=== PATIENT | male | born 1985 | race Caucasian/White ===

== ENCOUNTER 2024-08-16 11:09 | Emergency (ER) | payer OTHER, SELFPAY ==
--- NOTE | ~2024-08-16 | XR_ITS ---
EXAMINATION: XR hand RT min 3V DATE: 08/16/2024 11:37 INDICATION: Pain at the right fourth and fifth metacarpals after punching a metal door TECHNIQUE: Posteroanterior, oblique and lateral views of the right hand were obtained. COMPARISON: None. FINDINGS: There is mild palmar angulation nondisplaced extra articular fracture at the necks of the fourth and fifth metacarpals. No other fractures identified. Joint spaces are normal. IMPRESSION: 1. Mild palmar angulation. Nondisplaced extra articular fractures (boxer's fractures) at the necks of the distal right fourth and fifth metacarpals. Reviewed, dictated and finalized at location A. IMPRESSION: 1. Mild palmar angulation. Nondisplaced extra articular fractures (boxer's frac tures) at the necks of the distal right fourth and fifth metacarpals.
[2024-08-16 11:18] VITALS: BP 141/92; PULSE 63; RESP 20; TEMP 36.6; O2SAT 100
--- NOTE | 2024-08-16 11:36 | ED.UPPEXIN ---
HPI - Extremity Injury (Upper) General Chief Complaint: Extremity Injury, Upper Stated Complaint: Right Hand Injury Time Seen by Provider: 08/16/24 11:36 Source: patient Mode of arrival: ambulatory Limitations: no limitations History of Present Illness HPI narrative: 38-year-old male presents with complaint of pain and swelling to right hand. Two days ago patient became upset and punched a metal door. Reports increased pain and swelling over the last 2 days, pain worse with movement. Denies numbness tingling. All systems reviewed and negative except as noted above. Related Data Home Medications ?Medication ?Instructions ?Recorded ?Confirmed ?Last Taken ?Type Celexa 08/16/24 Unknown History Allergies Allergy/AdvReac Type Severity Reaction Status Date / Time clavulanic acid (From Allergy Unknown Unknown Verified 08/16/24 11:23 Augmentin) amoxicillin Allergy Unknown Verified 01/14/19 09:45 Review of Systems Review of Systems: CONSTITUTIONAL: Denies fever, chills, or sweats. EYES: Denies visual changes, redness, or discharge. ENT: Denies rhinorrhea, congestion, sore throat, or otalgia. CARDIOVASCULAR: Denies chest pain, palpitations, or edema. RESPIRATORY: Denies cough or dyspnea. GASTROINTESTINAL: Denies abdominal pain, nausea, vomiting, or diarrhea. GENITOURINARY: Denies dysuria or hematuria. SKIN: Denies rash or itching. MUSCULOSKELETAL: Denies back pain, joint pain, or myalgia. Reports pain and swelling to right hand NEUROLOGIC: Denies headache, numbness, or weakness. PSYCHIATRIC: Denies anxiety or depression. All other systems reviewed are negative, except as documented in HPI. FOR[facility]LY [facility] Past Medical History Medical History (Updated 08/16/24 @ 11:53 by Chiara Cruz NP) Patulous eustachian tube, right ear Inguinal hernia Comments At time of signature, agree with nursing past medical, surgical, social and family history. There is no relevant family history pertinent to the presenting complaint. Exam Narrative: GENERAL: This is a well-nourished, well-developed patient, in no apparent distress. HEAD: normocephalic, atraumatic. EYES: PERRL. Sclera clear/white. Vision is grossly intact. EARS: External ears normal NOSE: External nose normal NECK: Neck supple, non-tender without lymphadenopathy, masses or thyromegaly. CARDIOVASCULAR: Regular rate and rhythm without murmurs, gallops, or rubs. RESPIRATORY: Clear to auscultation. Breath sounds equal bilaterally. No wheezes, rales, or rhonchi. SKIN: warm, Dry, intact with no suspicious lesions or rash, good texture and turgor. NEURO: awake, alert, and oriented to person, place and time. There were no obvious focal neurologic abnormalities. EXTREMITIES: tenderness to 3rd 4th and 5th distal metacarpal bones on palpation. Bruising and swelling noted to dorsal aspect. Range of motion decreased due to pain. Neurovascularly intact. Course Course Level of Care: Express Care Visit Vital Signs Vital signs: Vital Signs Temperature 36.6 C 08/16/24 11:18 Pulse Rate 63 08/16/24 11:18 Respiratory Rate 20 08/16/24 11:18 Blood Pressure 141/92 H 08/16/24 11:18 Pulse Oximetry 100 08/16/24 11:18 Oxygen Delivery Room Air 08/16/24 11:18 Temperature 36.6 C 08/16/24 11:18 Pulse Rate 63 08/16/24 11:18 Respiratory Rate 20 08/16/24 11:18 Blood Pressure 141/92 H 08/16/24 11:18 Pulse Oximetry 100 08/16/24 11:18 Oxygen Delivery Room Air 08/16/24 11:18 Reviewed MDM - Extremity Injury (Upper) MDM Narrative Medical decision making narrative: pt placed in OCL splint by [facility]. NV intact pre and post procedure. Referred to [facility] for follow up. patien Differential Diagnosis Differential diagnosis: Likely finger sprain, dislocation of finger and fracture of hand Imaging Data My impression: Agree with Radiology Radiologist's impression: EXAMINATION: XR hand RT min 3V DATE: 08/16/2024 11:37 INDICATION: Pain at the right fourth and fifth metacarpals after punching a metal door TECHNIQUE: Posteroanterior, oblique and lateral views of the right hand were obtained. COMPARISON: None. FINDINGS: There is mild palmar angulation nondisplaced extra articular fracture at the necks of the fourth and fifth metacarpals. No other fractures identified. Joint spaces are normal. IMPRESSION: 1. Mild palmar angulation. Nondisplaced extra articular fractures (boxer's fractures) at the necks of the distal right fourth and fifth metacarpals. Discharge Plan Discharge Clinical Impression: Fracture of fourth metacarpal bone of right hand Qualifiers: Encounter type: initial encounter Fracture type: closed Metacarpal location: neck Fracture alignment: nondisplaced Qualified Code(s): S62.364A - Nondisplaced fracture of neck of fourth metacarpal bone, right hand, initial encounter for closed fracture Fracture of fifth metacarpal bone of right hand Qualifiers: Encounter type: initial encounter Fracture type: closed Metacarpal location: neck Fracture alignment: nondisplaced Qualified Code(s): S62.366A - Nondisplaced fracture of neck of fifth metacarpal bone, right hand, initial encounter for closed fracture Patient Disposition: Home Condition: Stable Instructions: Boxer Fracture (ED) Additional Instructions: The x-ray of your right hand shows a fracture to your 4th and 5th metacarpal bones. Take medication as prescribed. This medication may cause drowsiness, do not drive while taking it. Elevate when at rest. Call today and schedule follow-up appointment with hand specialist. Patient Language: Indonesian Prescriptions: New tramadol 50 mg tablet 50 mg PO Q6H PRN (Reason: pain) Qty: 20 0RF No Action Celexa Follow-up/Referrals: Surekha Darby MD [Physician] - ( Call and schedule follow-up appointment for fracture care) Arceo,Caroline Driscoll APN [Primary Care Provider] - Time of Disposition: 11:53
--- OUTSIDE RECORDS SUMMARY | 2024-08-16 12:19 | XMS_ITS | Clinical Summary ---
Author Organization [facility] Address [address] [place] [address] Phone Care Team Providers Care Thoracic Medicine Specialist Name Role Phone Adis, Caroline MAGANA CNP Primary Care Provider [phone] Allergies Active Allergy Reactions Criticality Noted Date Comments Amoxicillin Unknown 03/12/2019 Oxycodone-Acetaminophen Unknown 03/12/2019 Medications Acetaminophen (TYLENOL PO) Take by mouth. Active cetirizine (ZYRTEC) 10 MG TabletIndication s:Cough Take 1 Tab by mouth daily. 90 Tab 3 03/12/2019 Active Active Problems No known active problems Immunizations Immunization Administration Dates Next Due Influenza Vaccine, Quadrivalent, PF 03/12/2019 TDAP Vaccine 03/03/2013 Family History Medical History Relation Name Comments Heart Attack Father Heart Disease Father Hypertension Father Cerebral Anuerysm Mother Hyperthyroidism Sister Relation Name Status Comments Brother Father Alive Maternal Grandfather Maternal Grandmother Mother Alive Paternal Grandfather Paternal Grandmother Sister Alive Social History Tobacco Use Types Packs/Day Years Used Date Smoking Tobacco: Former Cigarettes 0.3 1 0 03/12/2005 - 03/12/2006 Smokeless Tobacco: Never Tobacco Cessation:Counseling Given: No Alcohol Use Standard Drinks/Week Comments Not Currently 0 (1 standard drink = 0.6 oz pur e alcohol) AUDIT-C Answer Date Recorded Frequency of Alcohol Consumption Never 03/12/2019 Average Number of Drinks Not on file 020 Frequency of Binge Drinking Not on file 03/03 PHQ-2 Answer Date Recorded PHQ-2 Score 0 03/12/2019 Sexually Active Control Partners Comments Yes Female Sex and Gender Information Value Date Recorded Sex Assigned at Not on file Legal Sex Male 7:25 PM CDT Gender Identity Not on file Sexual Orientation Not on file Last Filed Vital Signs Vital Sign Reading Time Taken Comments Blood Pressure 112/64 03/12/2019 4:25 PM [employer] Pulse 86 03/12/2019 4:25 PM [employer] Temperature 36.8 C (98.2 F) 03/12/2019 4:25 PM [employer] Respiratory Rate 16 03/12/2019 4:25 PM [employer] Oxygen Saturation 99% 03/12/2019 4:25 PM [employer] Inhaled Oxygen Concentration - - Weight 108.9 kg (240 lb) 03/12/2019 4:25 PM [employer] Height 177.8 cm (5' 10) 03/12/2019 4:25 PM [employer] Body Mass Index 34.44 03/12/2019 4:25 PM [employer] Plan of Treatment Health Maintenance Due Date Last Done Comments Hepatitis C Virus (HCV) Screening 1986 Human Papillomavirus (HPV) Immunization (1 - Male 3-dose series) 2001 Hepatitis B Immunization (1 of 3 - 19+ 3-dose series) 2005 SARS-COV-2 Immunization ( - 2023- season) 2023 Influenza Immunization (Seas on Ended) 2024 03/12/2019 Respiratory Syncytial Virus (RSV) Immunization (Adult) (1 - 1-dose 75+ series) 2061 DTaP/Tdap/Td Immunization Discontinued 2013, 01/19/2013 Meningococcal Immunization (ACWY) Aged Out No longer eligible based on patient's age to complete this topic Pneumococcal Immunization Combined Aged Out No longer eligible based on patient's age to complete this topic Rotavirus Immunization Aged Out No lo nger eligible based on patient's age to complete this topic Insurance MEDICAID [employer] [facility] Care Teams Thoracic Medicine Specialist Relationship Specialty Start Date End Date Arceo, IZZY Velazquez, KELSEY [address] [place] [address] PCP - General Family Medicine 06/04/22
--- OUTSIDE RECORDS SUMMARY | 2024-08-16 12:19 | XMS_ITS | Data Portability ---
Author Organization [facility] Address [address] [place] [address] Care Team Providers Care Residential Treatment Staff Name Role Phone VEGA, CAROLINE Primary Care Provider Unavailabl e Assessment No assessment recorded. Plan of Treatment Reminders Order Date Submit Date Provider Last Modified By Organization Details Last Modified Time Details Appointments None recorded . Lab urinalys is complete , reflex culture 2023 024 [facility], [address] [place] [address] 2, [place], [address], 4 12:12:35 vitamin D, 25-hydro xy, total, serum 2023 024 [facility], [address] [place] [address] 2, [place], [address], 4 12:12:38 CMP, serum or plasma 2023 024 [facility], [address] [place] [address] 2, [place], [address], 4 12:12:31 CBC w/ auto diff 2023 024 [facility], [address] [place] [address] 2, [place], [address], 4 12:12:36 TSH, ultra-se nsitive, serum 2023 024 [facility], [address] [place] [address] 2, [place], [address], 4 12:12:33 lipid panel, serum 2023 024 [facility], [address] [facility], [facility] 2, [place], [address], 4 12:12:30 urinalys is, dipstick , reflex micro 2022 023 [facility], [address] [facility], [facility] 2, [place], [address], 3 16:11:42 TSH, ultra-se nsitive, serum 2022 023 [facility], [address], [address], [place], [address], 3 16:11:43 CMP, serum or plasma 2022 023 [place] [facility], [address], [address], [place], [address], 3 03:08:14 lipid panel, serum 2022 023 [place] [facility], [address], [place], [address], 3 03:08:13 CBC 2022 023 [place] [facility], [address], [place], [address], 3 03:08:14 amylase + lipase, serum 2022 023 [facility], [address] [facility], [facility] 2, [place], [address], 3 16:11:44 celiac disease comprehe nsive panel, serum 2022 023 [facility], [address] [facility], [facility] 2, [place], [address], 3 16:11:41 vitamin D, 25-hydro xy, total, serum 2022 023 [facility], [address] [facility], [place], [address], 3 16:11:45 fecal occult blood, immunoas say, stool 2022 023 [place] [facility], [address] [facility] 2, [place], [address], 3 14:12:29 Referral neurolog ist referral 2023 024 [email or web address] Wallace Boone MD, 4 [facility] , [address], [place], [address], 4 12:16:[address] referral 2022 023 [email or web address] Eliu Lovelace MD, 4 [facility], [address], [place], [address], 4 09:45:20 neurolog ist referral 2022 023 [email or web address] Wallace Boone MD, 4 [facility] , [address], [place], [address], 3 11:17:54 Procedures None recorded . Surgeries None recorded . Imaging None recorded . Medication Orders Bactrim DS 800 mg-160 mg tablet 2024 025 [id number], [address] , [place], [place], [id number], 5 16:52:07 fluticas one propiona te 50 mcg/actu ation nasal spray,connelly spension 2024 025 [facility] #[id number], [address] , [place], [place], [id number], 5 16:52:18 lamotrig ine 25 mg tablet 2023 025 [facility] #[id number], [address], [place], [place], [id number], 5 16:21:13 famotidi ne 20 mg tablet 2020 021 [facility] #[id number], [address], [place], [place], [id number], 3 15:51:16 Patient TargetsNo targets recorded. Patient Instructions Encounter Date Encounter Id Patient Instructions Last Modified By Organization Details Last Modified Time 05/26/2020 [id number] Avoid eating lat e at night and foods that are spicy or acidic. Decrease fatty foods and increase fresh fruits and vegetables and daily intake of fiber. Drink at least 8-10 glasses of water per day. Increase activity level and work up to at least 30 minutes of exercise most days of the week. Not available 05/26/2020 10:48:25 follow up as needed Not available 05/26/2020 10:48:33 05/24/2022 [id number] hemorrhoids: car e instructions Not available 05/24/2022 16:15:06 learning about mood disorders Not available 05/24/2022 16:15:07 A healthy lifestyle: care instructions Not available 05/24/2022 16:15:07 Increase intake of fresh fruits, and vegetables. Avoid packaged foods and fast foods. Follow a low salt diet, drink at least 8-10 8oz glasses of water a day, exercise most days of the week. Take all medications as prescribed. Keep appointments with PCP and all specialists. Not available 05/27/2022 13:23:25 dwp labs needed, plan pending results Not available 05/27/2022 13:23:34 10/09/2022 [id number] A healthy lifestyle: care instructions Not available 10/09/2022 15:25:33 Be safe with medicines. Take your medicines exactly as prescribed. Call your doctor if you think you are having a problem with your medicine. Make a treatment plan with your doctor. Be sure to follow your plan. Try to identify and avoid things that may make you more likely to have a seizure. These may include: Not getting enough sleep. Using drugs or alcohol. Being emotionally stressed. Skipping meals. Keep a record of any seizures you have. Note the date, time of day, and any details about the seizure that you can remember. Your doctor can use this information to plan or adjust your medicine or other treatment. Be sure that any doctor treating you for another condition knows that you have epilepsy. Each doctor should know what medicines you are taking, if any. Wear a medical ID bracelet. You can buy this at most [employer]. If you have a seizure that leaves you unconscious or unable to speak for yourself, this bracelet will let those who are treating you know that you have epilepsy. Talk to your doctor about whether it is safe for you to do certain activities, such as drive or swim. Not available 10/09/2022 15:09:58 follow up in 4 months Not available 10/09/2022 15:28:21 07/29/2023 [id number] A healthy lifestyle: care instructions Not available 07/29/2023 10:01:50 epilepsy: care instructions Not available 07/29/2023 10:01:51 learning about mood disorders Not available 07/29/2023 10:01:50 Cont on current medications. Not available 07/29/2023 10:02:00 dwp labs needed, plan pending results Not available 07/29/2023 10:02:07 04/21/2024 [id number] A healthy lifestyle: care instructions Not available 04/21/2024 16:51:56 cough: care instructions Not available 04/21/2024 16:53:01 learning about mood disorders Not available 04/21/2024 16:29:06 Take all antibiotics prescribed to you. If any fever or increase in pain, call/return to office. Not available 04/27/2024 18:09:10 follow up as needed Not available 04/27/2024 18:09:17 Reason for Referral Neurologist Referral for Sei zure Referring Physician: Caroline Vega [facility], Encounter Date: 10/09/2022 Master Baker Referral for Occult blood detected in feces Referring Physician: Family Aramis Velázquez, Encounter Date: 10/09/2022 Neurologist Referral for Sei zure disorder Referring Physician: Caroline Vega [facility] Aramis, Encounter Date: 07/29/2023 Results Created Date Observation Date Name Description Value Unit Range Abnormal Flag Note LastModifiedBy Organization Detail LastModifiedTime 05/25/19 23 05/24/2022 LIPID PANEL cholesterol, total 116.1 mg/dL 140.0- 200.0 below low normal Not Available [facility] [address] [place] [address], [address], 05/25/2022 03:08:13 05/25/1905/24/2022 LIPID PANEL triglyceride s 139 mg/dL <=150 Not Available [facility] Department [address] [place] [address], [address], 05/25/2022 03:08:13 05/25/19 23 05/24/2022 LIPID PANEL HDL cholesterol 29.3 mg/dL 40.0-1 00.0 below low normal Not Available [facility] [address] [place] [address], [address], 05/25/2022 03:08:13 05/25/1905/24/2022 LIPID PANEL VLDL cholesterol ravi 27.80 mg/dL 5.00-4 0.00 Not Available [facility] [address] [place] [address], [address], 05/25/2022 03:08:13 05/25/1905/24/2022 LIPID PANEL LDL chol calc ([facility]) 62.2 Not Available [facility] Department [address] [place] [address], [address], 05/25/2022 03:08:13 05/25/19 23 05/24/2022 COMP. METAB OLIC PANEL (14) glucose 80 mg/dL 65-99 ANION GP 19.0 mmol/ L N OSMOL 281.0 mOsM/ L N REFER ENCE RANGE : 275.0 -301. 0 Not Available [facility] [address] [place] [address], [address], 05/25/2022 03:08:14 05/25/19 23 05/24/2022 COMP. METAB OLIC PANEL (14) BUN 10 mg/dL 8-26 Not Available [facility] [address] [place] [address], [address], 05/25/2022 03:08:14 05/25/19 23 05/24/2022 COMP. METAB OLIC PANEL (14) creatinine 1.00 mg/dL 0.50-1 .40 Not Available [facility] [address] [place] [address], [address], 05/25/2022 03:08:14 05/25/19 23 05/24/2022 COMP. METAB OLIC PANEL (14) eGFR 101 mL/mi n/1.7 3 >=60 Not Available [facility] [address] [place] [address], [address], 05/25/2022 03:08:14 05/25/19 23 05/24/2022 COMP. METAB OLIC PANEL (14) BUN/creatini ne ratio 9.7 Not Available [facility] Department [address] [place] [address], [address], 05/25/2022 03:08:14 05/25/1905/24/2022 COMP. METAB OLIC PANEL (14) sodium 142.0 mmol/ L 136.0- 144.0 Not Available [facility] [address] [place] [address], [address], 05/25/2022 03:08:14 05/25/19 23 05/24/2022 COMP. METAB OLIC PANEL (14) potassium 4.1 mmol/ L 3.5-5. 3 Not Available [facility] [address] [place] [address], [address], 05/25/2022 03:08:14 05/25/19 23 05/24/2022 COMP. METAB OLIC PANEL (14) chloride 104 mmol/ l 101-11 1 Not Available [facility] [address] [place], [address], 05/25/2022 03:08:14 05/25/19 23 05/24/2022 COMP. METAB OLIC PANEL (14) carbon dioxide, total 23.7 mmol/ L 21.0-3 2.0 Not Available [facility] [address] [place], [address], 05/25/2022 03:08:14 05/25/19 23 05/24/2022 COMP. METAB OLIC PANEL (14) calcium 9.6 mg/dL 8.2-10 .0 Not Available [facility] [address] [place], [address], 05/25/2022 03:08:14 05/25/19 23 05/24/2022 COMP. METAB OLIC PANEL (14) protein, total 7.2 g/dL 6.7-8. 2 Not Available [facility] [address] [place], [address], 05/25/2022 03:08:14 05/25/19 23 05/24/2022 COMP. METAB OLIC PANEL (14) albumin 4.4 g/dL 3.5-5. 5 Not Available [facility] [address] [place], [address], 05/25/2022 03:08:14 05/25/19 23 05/24/2022 COMP. METAB OLIC PANEL (14) globulin, total 2.8 g/dL 1.5-4. 5 Not Available [facility] [address] [place], [address], 05/25/2022 03:08:14 05/25/19 23 05/24/2022 COMP. METAB OLIC PANEL (14) A/G ratio 1.5 Not Available [facility] Department [address] [place], [address], 05/25/2022 03:08:14 05/25/19 23 05/24/2022 COMP. METAB OLIC PANEL (14) bilirubin, total 0.2 mg/dL 0.0-1. 2 Not Available [facility] [address] [place] [address], [address], 05/25/2022 03:08:14 05/25/19 23 05/24/2022 COMP. METAB OLIC PANEL (14) alkaline phosphatase 75.4 IU/L 42.0-1 21.0 Not Available [facility] [address] [place], [address], 05/25/2022 03:08:14 05/25/19 23 05/24/2022 COMP. METAB OLIC PANEL (14) AST (SGOT) 22.4 U/L 10.0-4 2.0 Not Available [facility] [address] [place] [address], [address], 05/25/2022 03:08:14 05/25/19 23 05/24/2022 COMP. METAB OLIC PANEL (14) ALT (SGPT) 31.9 U/L 10.0-6 0.0 Not Available [facility] [address] [place] [address], [address], 05/25/2022 03:08:14 05/25/19 23 05/24/2022 CBC, NO DIFFE RENTI AL/PL ATELE T WBC 9.4 K/uL 3.4-10 .8 Not Available [facility] [address] [place], [address], 05/25/2022 03:08:14 05/25/19 23 05/24/2022 CBC, NO DIFFE RENTI AL/PL ATELE T RBC 4.7 M/uL 4.5-6. 3 Not Available [facility] [address] [place], [address], 05/25/2022 03:08:14 05/25/1905/24/2022 CBC, NO DIFFE RENTI AL/PL ATELE T hemoglobin 13.6 g/dL 13.5-1 7.5 Not Available [facility] [address] [place], [address], 05/25/2022 03:08:14 05/25/1905/24/2022 CBC, NO DIFFE RENTI AL/PL ATELE T hematocrit 42.0 % 40.0-5 2.0 Not Available [facility] [address] [place], [address], 05/25/2022 03:08:14 05/25/1905/24/2022 CBC, NO DIFFE RENTI AL/PL ATELE T MCV 89 fL 80-95 Not Available [facility] [address] [place], [address], 05/25/2022 03:08:14 05/25/1905/24/2022 CBC, NO DIFFE RENTI AL/PL ATELE T MCH 29 pg 27-32 Not Available [facility] [address] [place], [address], 05/25/2022 03:08:14 05/25/1905/24/2022 CBC, NO DIFFE RENTI AL/PL ATELE T MCHC 32 g/dL 32-36 Not Available [facility] [address] [place], [address], 05/25/2022 03:08:14 05/25/1905/24/2022 CBC, NO DIFFE RENTI AL/PL ATELE T RDW 12.7 % 11.5-1 4.5 Not Available [facility] [address] [place], [address], 05/25/2022 03:08:14 05/25/1905/25/2022 ABRIL C DISEA SE PANEL T-transgluta minase (ttg) IgA <2 U/mL 0-3 Negat amna 0 - 3 Weak Posit amna 4 - 10 Posit amna >10 Tissu e Trans gluta chester e (tTG) has been ident ified as the endom ysial antig en. Studi es have demon str- ated that endom ysial IgA antib odies have over 99% speci ficit y for glute n sensi tive enter opath y. Not Available [facility] ([facility]) [address] [place], [address], 05/27/2022 16:11:41 05/25/1905/25/2022 ABRIL C DISEA SE PANEL immunoglobul in A, qn, serum 339 mg/dL 90-386 Not Available [facility] ([facility]) [address] [place], [address], 05/27/2022 16:11:41 05/25/1905/27/2022 ABRIL C DISEA SE PANEL endomysial antibody IgA Negati ve negati ve Not Available [facility] ([facility]) [address] [place], [address], 05/27/2022 16:11:41 05/25/1905/25/2022 URINA LYSIS , ROUTI NE W/RFX specific gravity 1.014 1.005- 1.030 Not Available [facility] ([facility]) [address] [place], [address], 05/27/2022 16:11:42 05/25/19 23 05/25/2022 URINA LYSIS , ROUTI NE W/RFX pH 6.5 5.0-7. 5 Not Available [facility] ([facility]) [address] [place], [address], 05/27/2022 16:11:42 05/25/19 23 05/25/2022 URINA LYSIS , ROUTI NE W/RFX urine-color Yellow yellow Not Available [facility] ([facility]) [address] [facility], [place], [address], 05/27/2022 16:11:42 05/25/19 23 05/25/2022 URINA LYSIS , ROUTI NE W/RFX appearance Clear clear Not Available [facility] ([facility]) [address] [facility], [place], [address], 05/27/2022 16:11:42 05/25/19 23 05/25/2022 URINA LYSIS , ROUTI NE W/RFX WBC esterase Negati ve negati ve Not Available [facility] ([facility]) [address] [facility], [place], [address], 05/27/2022 16:11:42 05/25/19 23 05/25/2022 URINA LYSIS , ROUTI NE W/RFX protein Negati ve negati ve/tra ce Not Available [facility] ([facility]) [address] [facility], [place], [address], 05/27/2022 16:11:42 05/25/19 23 05/25/2022 URINA LYSIS , ROUTI NE W/RFX glucose Negati ve negati ve Not Available [facility] ([facility]) [address] [facility], [place], [address], 05/27/2022 16:11:42 05/25/19 23 05/25/2022 URINA LYSIS , ROUTI NE W/RFX ketones Negati ve negati ve Not Available [facility] ([facility]) [address] [facility], [place], [address], 05/27/2022 16:11:42 05/25/19 23 05/25/2022 URINA LYSIS , ROUTI NE W/RFX occult blood 3+ negati ve abnormal Not Available [facility] ([facility]) [address] [place], [address], 05/27/2022 16:11:42 05/25/19 23 05/25/2022 URINA LYSIS , ROUTI NE W/RFX bilirubin Negati ve negati ve Not Available [facility] ([facility]) [address] [place], [address], 05/27/2022 16:11:42 05/25/19 23 05/25/2022 URINA LYSIS , ROUTI NE W/RFX urobilinogen ,semi-qn 0.2 mg/dL 0.2-1. 0 Not Available [facility] ([facility]) [address] [place], [address], 05/27/2022 16:11:42 05/25/19 23 05/25/2022 URINA LYSIS , ROUTI NE W/RFX nitrite, urine Negati ve negati ve Not Available [facility] ([facility]) [address] [place], [address], 05/27/2022 16:11:42 05/25/19 23 05/25/2022 URINA LYSIS , ROUTI NE W/RFX microscopic examination See below: Micro scopi c was indic ated and was perfo rmed. Not Available [facility] ([facility]) [address] [place], [address], 05/27/2022 16:11:42 05/25/19 23 05/25/2022 TSH RFX ON ABNOR MAL TO FREE T4 TSH 2.270 uIU/m L 0.450- 4.500 Not Available [facility] ([facility]) [address] [place], [address], 05/27/2022 16:11:43 05/25/19 23 05/25/2022 LAURA+L IPASE amylase 39 U/L 31-110 Not Available [facility] ([facility]) [address] [place], [address], 05/27/2022 16:11:44 05/25/19 23 05/25/2022 LAURA+L IPASE lipase 17 U/L 13-78 Not Available [facility] ([facility]) [address] [facility], [place], [address], 05/27/2022 16:11:44 05/25/19 23 05/25/2022 VITAM IN D, 25-HY DROXY vitamin D, 25-hydroxy 24.9 NG/mL 30.0-1 00.0 below low normal Vitam in D defic iency has been defin ed by the Insti tute of [facility] and an Endoc rine Socie ty pract ice guide line as a level of serum 25-OH vitam in D less than 20 ng/mL (1,2) . The Endoc rine Socie ty went on to furth er defin e vitam in D insuf ficie ncy as a level betwe en 21 and 29 ng/mL (2). 1. IOM (Inst itute of Medic ine). 2010. Dieta ry refer ence intak es for calci um and D. [place] gonzalez [place]: [facility] . 2. Amanda uribe [place], Sanjay corral [place], Arleth off-F demetrius i FAULKNER, et al. Evalu ation , treat ment, and preve ntion of vitam in D defic iency : an Endoc rine Socie ty clini ravi pract ice guide line. JCEM. 2010; 96(7) :1911 -30. Not Available [facility] ([facility]) [address] [facility], [place], [address], 05/27/2022 16:11:45 05/25/19 23 05/25/2022 PROT+ CREAT U (RAND OM) creatinine, urine 94.1 mg/dL notest ab. Not Available [facility] ([facility]) [address] [facility], [place], [address], 05/27/2022 16:11:44 05/25/19 23 05/25/2022 PROT+ CREAT U (RAND OM) protein,tota l,urine 5.2 mg/dL notest ab. Not Available [facility] ([facility]) [address] [facility], [place], [address], 05/27/2022 16:11:44 05/25/19 23 05/25/2022 PROT+ CREAT U (RAND OM) protein/crea t ratio 55 mg/g_ creat 0-200 Not Available [facility] ([facility]) [address] [facility], [place], [address], 05/27/2022 16:11:44 05/25/19 23 05/25/2022 MICRO SCOPI C EXAMI NATIO N WBC None seen /hpf 0-5 Not Available [facility] ([facility]) [address] [facility], [place], [address], 05/27/2022 16:11:42 05/25/19 23 05/25/2022 MICRO SCOPI C EXAMI NATIO N RBC >30 /hpf 0-2 abnormal Not Available [facility] ([facility]) [address] [facility], [place], [address], 05/27/2022 16:11:42 05/25/19 23 05/25/2022 MICRO SCOPI C EXAMI NATIO N epithelial cells (non renal) None seen /hpf 0-10 Not Available [facility] ([facility]) [address] [facility], [place], [address], 05/27/2022 16:11:42 05/25/19 23 05/25/2022 MICRO SCOPI C EXAMI NATIO N casts None seen /lpf nonese en Not Available [facility] ([facility]) [address] [facility], [place], [address], 05/27/2022 16:11:42 05/25/19 23 05/25/2022 MICRO SCOPI C EXAMI NATIO N bacteria None seen nonese en/few Not Available [facility] ([facility]) [address] [facility], [place], [address], 05/27/2022 16:11:42 05/29/19 23 05/29/2022 OCCUL T BLOOD , FECAL , IA occult blood, fecal, ia Positi ve negati ve abnormal Not Available [facility] ([facility]) [address] [facility], [place], [address], 05/29/2022 14:12:29 05/31/19 23 05/31/2022 OCCUL T BLOOD , FECAL , IA occult blood, fecal, ia Positi ve negati ve abnormal Not Available [facility] ([facility]) [address] [facility], [place], [address], 05/31/2022 20:08:49 07/29/19 24 07/30/2023 LIPID PANEL cholesterol, total 149 mg/dL 100-19 9 Not Available [facility] ([facility]) [address] [facility], [place], [address], 07/30/2023 12:12:29 07/29/19 24 07/30/2023 LIPID PANEL triglyceride s 178 mg/dL 0-149 above high normal Not Available [facility] ([facility]) [address] [facility], [place], [address], 07/30/2023 12:12:29 07/29/19 24 07/30/2023 LIPID PANEL HDL cholesterol 31 mg/dL >39 below low normal Not Available [facility] ([facility]) [address] [place], [address], 07/30/2023 12:12:29 07/29/19 24 07/30/2023 LIPID PANEL VLDL cholesterol ravi 31 mg/dL 5-40 Not Available [facility] ([facility]) [address] [place], [address], 07/30/2023 12:12:29 07/29/19 24 07/30/2023 LIPID PANEL LDL chol calc ([facility]) 87 mg/dL 0-99 Not Available [facility] ([facility]) [address] [place], [address], 07/30/2023 12:12:29 07/29/19 24 07/30/2023 COMP. METAB OLIC PANEL (14) glucose 105 mg/dL 70-99 above high normal Not Available [facility] ([facility]) [address] [place], [address], 07/30/2023 12:12:31 07/29/19 24 07/30/2023 COMP. METAB OLIC PANEL (14) BUN 13 mg/dL 6-20 Not Available [facility] ([facility]) [address] [place], [address], 07/30/2023 12:12:31 07/29/19 24 07/30/2023 COMP. METAB OLIC PANEL (14) creatinine 0.98 mg/dL 0.76-1 .27 Not Available [facility] ([facility]) [address] [place], [address], 07/30/2023 12:12:31 07/29/19 24 07/30/2023 COMP. METAB OLIC PANEL (14) eGFR 102 mL/mi n/1.7 3 >59 Not Available [facility] ([facility]) [address] [place], [address], 07/30/2023 12:12:31 07/29/19 24 07/30/2023 COMP. METAB OLIC PANEL (14) BUN/creatini ne ratio 13 9-20 Not Available [facility] ([facility]) [address] [place], [address], 07/30/2023 12:12:31 07/29/19 24 07/30/2023 COMP. METAB OLIC PANEL (14) sodium 138 mmol/ L 134-14 4 Not Available [facility] ([facility]) [address] [place], [address], 07/30/2023 12:12:31 07/29/19 24 07/30/2023 COMP. METAB OLIC PANEL (14) potassium 4.5 mmol/ L 3.5-5. 2 Not Available [facility] ([facility]) [address], [place], [address], 07/30/2023 12:12:31 07/29/19 24 07/30/2023 COMP. METAB OLIC PANEL (14) chloride 104 mmol/ L 96-106 Not Available [facility] ([facility]) [address] [place], [address], 07/30/2023 12:12:31 07/29/19 24 07/30/2023 COMP. METAB OLIC PANEL (14) carbon dioxide, total 21 mmol/ L 20- Not Available [facility] ([facility]) [address] [place], [address], 07/30/2023 12:12:31 07/29/19 24 07/30/2023 COMP. METAB OLIC PANEL (14) calcium 9.2 mg/dL 8.7-10 .2 Not Available [facility] ([facility]) [address] [place], [address], 07/30/2023 12:12:31 07/29/19 24 07/30/2023 COMP. METAB OLIC PANEL (14) protein, total 7.0 g/dL 6.0-8. 5 Not Available [facility] ([facility]) [address] [place], [address], 07/30/2023 12:12:31 07/29/19 24 07/30/2023 COMP. METAB OLIC PANEL (14) albumin 4.2 g/dL 4.1-5. 1 Not Available [facility] ([facility]) [address] [place], [address], 07/30/2023 12:12:31 07/29/19 24 07/30/2023 COMP. METAB OLIC PANEL (14) globulin, total 2.8 g/dL 1.5-4. 5 Not Available [facility] ([facility]) [address] [facility] [place], [address], 07/30/2023 12:12:31 07/29/19 24 07/30/2023 COMP. METAB OLIC PANEL (14) A/G ratio 1.5 1.2-2. 2 Not Available [facility] ([facility]) [address] [facility], [place], [address], 07/30/2023 12:12:31 07/29/19 24 07/30/2023 COMP. METAB OLIC PANEL (14) bilirubin, total 0.3 mg/dL 0.0-1. 2 Not Available [facility] ([facility]) [address] [place], [address], 07/30/2023 12:12:31 07/29/19 24 07/30/2023 COMP. METAB OLIC PANEL (14) alkaline phosphatase 80 IU/L 44-121 Not Available [facility] ([facility]) [address] [place], [address], 07/30/2023 12:12:31 07/29/19 24 07/30/2023 COMP. METAB OLIC PANEL (14) AST (SGOT) 24 IU/L 0-40 Not Available [facility] ([facility]) [address] [place], [address], 07/30/2023 12:12:31 07/29/19 24 07/30/2023 COMP. METAB OLIC PANEL (14) ALT (SGPT) 27 IU/L 0-44 Not Available [facility] ([facility]) [address] [place], [address], 07/30/2023 12:12:31 07/29/19 24 07/30/2023 MICRO SCOPI C EXAMI NATIO N WBC None seen /hpf 0-5 Not Available [facility] ([facility]) [address] [facility], [place], [address], 07/30/2023 12:12:33 07/29/19 24 07/30/2023 MICRO SCOPI C EXAMI NATIO N RBC None seen /hpf 0-2 Not Available [facility] ([facility]) [address] [facility], [place], [address], 07/30/2023 12:12:33 07/29/19 24 07/30/2023 MICRO SCOPI C EXAMI NATIO N epithelial cells (non renal) None seen /hpf 0-10 Not Available [facility] ([facility]) [address] [facility], [place], [address], 07/30/2023 12:12:33 07/29/19 24 07/30/2023 MICRO SCOPI C EXAMI NATIO N casts None seen /lpf nonese en Not Available [facility] ([facility]) [address] [facility], [place], [address], 07/30/2023 12:12:33 07/29/19 24 07/30/2023 MICRO SCOPI C EXAMI NATIO N bacteria None seen nonese en/few Not Available [facility] ([facility]) [address] [facility], [place], [address], 07/30/2023 12:12:33 07/29/19 24 07/30/2023 TSH RFX ON ABNOR MAL TO FREE T4 TSH 2.100 uIU/m L 0.450- 4.500 Not Available [facility] ([facility]) [address] [facility], [place], [address], 07/30/2023 12:12:33 07/29/19 24 07/30/2023 UA/M W/RFL X CULTU RE, ROUTI NE specific gravity 1.014 1.005- 1.030 Not Available [facility] ([facility]) [address] [facility], [place], [address], 07/30/2023 12:12:35 07/29/19 24 07/30/2023 UA/M W/RFL X CULTU RE, ROUTI NE pH 6.0 5.0-7. 5 Not Available [facility] ([facility]) [address] [facility], [place], [address], 07/30/2023 12:12:35 07/29/19 24 07/30/2023 UA/M W/RFL X CULTU RE, ROUTI NE urine-color YELLOW yellow Not Available [facility] ([facility]) [address] [facility], [place], [address], 07/30/2023 12:12:35 07/29/19 24 07/30/2023 UA/M W/RFL X CULTU RE, ROUTI NE appearance CLEAR clear Not Available [facility] ([facility]) [address] [facility], [place], [address], 07/30/2023 12:12:35 07/29/19 24 07/30/2023 UA/M W/RFL X CULTU RE, ROUTI NE WBC esterase NEGATI VE negati ve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 [facility] (Adult Med) [address] [place] [address] 04/21/2024 16:09:11 04/28/2024 11:54:13 Depressive disorder 93844667 F32.A depression screening positive, stressed with work, home, sicknessdw p med options, cannabis userpt [facility] Elevated blood-pressure reading without diagnosis of hypertension 173112950 R03.0 elevated today, no prior hx of htn; Consider low salt diet Acute bila teral otitis media 441861917 H65.03 Mc TM erythema and edema/bulg ingpt allergy to amox, will send bactrim Obesity 993643810 E66.9 advised low fat, low cholestero l diet, regular exercise and weight reduction. Cough 45838699 R05.9 LSCTA, slight rhonchi but cleared with cough Health Concerns Section Related Observation LastModified by Organization Detai ls LastModified Time None Recorded Concern Status LastModified by Organization Details LastModified Time None Recorded Advance Directives Directive N: Payers Insurance Date Sequence Insurance Name Policy Number Policy Hyde Covered Member ID Hyde Member ID Guarantor Name 04/28/2024 2 () Ravinder Saucedo [id number] Ravinder Saucedo 02/11/2023 1 [employer] [facility] [address] ON OR AFTER 02/01/2020 (MEDICAID REPLACEMENT - HMO) Ravinder Saucedo [id number] Ravinder Saucedo 04/28/2024 1 [facility] (MEDICAID HMO) [id number] Ravinder Saucedo [id number] Ravinder Saucedo 05/24/2022 1 [facility] [employer] (MEDICAID HMO) Ravinder Saucedo [id number] Ravinder Saucedo 05/24/2022 1 [facility] (MEDICAID HMO) Ravinder Saucedo [id number] Ravinder Saucedo 10/06/2023 1 [facility] Ravinder Saucedo [id number] Ravinder Saucedo Notes Date Note Type Note Provider Name and Address Organization Details Recorded Time 05/26/2020 text/html pt c/o stomach pain in the last couple of months. Pt had covid 5 wks ago. He stated the stomach pain started getting wost when the covid started. Feels sore was doing ok but now it got a little worse this past week,drinking much less soda and more active, hurting more in the am, normal stool. not really changing his diet much but is trying to not eat past 8 pm,sore by belly button area.no fever, no nausea, vomiting or diarrhea Caroline Vega APN, ALGORITHM DESIGN ENGINEER-C Attn: [address] [facility], [place], [address], [facility] 05/26/2020 10:52:58 05/24/2022 text/html here for annual examc/o stomach and bowel problems, stools are light and thinks he has hemorrhoids. Had stomach bug about a week ago. Pt abdomen has been sore/ left lower side pain. Pt states his urine and stool has been limited but not painful. Some blood in stool- has had some in stools over the last year or so.drinking water and gatorade, feels like he is not peeing it out; last BM was today; depression screening positive, stressed with work, home, sickness Caroline Vega APN, ALGORITHM DESIGN ENGINEER-C Attn: [address] [facility], [place], [address], [facility] 05/27/2022 13:24:15 10/09/2022 text/html Passed out and h as seizure like activity on Friday. States he has not any dizziness since.Wants neuro referral Pt denies urinary issues. ER showed possible bacteria in urine but still has bloody stools a few times a week, no pain Caroline Vega APN, FNP-C Attn: [address] [facility], [place], [address], [facility] 10/09/2022 15:29:29 07/29/2023 text/html needs new referr al for neuro due to insurance change. has not has lamotrigine since losing state insurance Caroline Vega APN, FNP-C Attn: [address] [facility], [place], [address], [facility] 07/29/2023 10:07:43 04/21/2024 text/html Has almost lost all hearing in left ear states his neck and jaw has been sore. was admitted on 04/16 for coughing and dizziness and dx with Flu A but kids recently had it. Still has cough and feeling fatigue. not on any meds. Did not have good experience with [facility] Caroline Vega APN, FNP-C Attn: [address] [facility], [place], [address], [facility] 04/27/2024 18:09:38
--- OUTSIDE RECORDS SUMMARY | 2024-08-16 12:19 | XMS_ITS | Clinical Summary ---
Author Organization [facility] Address [address] [place] [address] Care Team Providers Care Scrap Yard Worker Name Role Phone Arceo, Caroline Ceja KNIFE GLAZER Primary Care Provider Allergies Active Allergy Reactions Criticality Noted Date Comments Amoxicillin Anaphylaxis High Oxycodone-Acetaminophen Unknown 03/12/2019 Pt states he gets weak,feels clammy almost passes out Medications chlorproMAZINE (THORAZINE) 25 mg tablet Take 1 tablet (25 mg total) by mouth every 6 (six) hours as needed (hiccup) 9 tablet 3 Active Additional Information Patient not taking.Reported on 12/31/2022 cyclobenzaprine (FLEXERIL) 10 mg tablet Take 1 tablet (10 mg total) by mouth 2 (two) times a day as needed for muscle spasms 20 tablet 3 Active Additional Information Patient not taking.Reported on 12/31/2022 ketorolac (TORADOL) 10 mg tablet Take 1 tablet (10 mg total) by mouth every 6 (six) hours as needed for pain 20 tablet 3 Active Additional Information Patient not taking.Reported on 12/31/2022 lamoTRIgine (LaMICtal) 25 mg tabletIndicatio ns:New onset seizure (HCC) Take 1 tablet (25 mg total) by mouth 2 (two) times a day for two weeks, then 2 tablets po twice a day 120 tablet 3 3 Active Active Problems Problem Noted Date Diagnosed Date Generalized-onset seizures 01/10/2023 Obstructive sleep apnea 01/10/2023 LLQ pain 01/03/2023 Assessment & Plan (01/03/2023 2:32 PM CDT): Associated with rectal bleeding and constipation CT with kidney stones from 06/2022 otherwise normal with no colitis or diverticulitis, mild leokocytosis, no anemia Will plan for colonoscopy to rule out IBD, if negative then likely related to IBS-C Constipation 01/03/2023 Assessment & Plan (01/03/2023 2:28 PM CDT): Constipated most days with one blow out once a week, associated with LLQ pain, hemorrhoids and rectal bleeding normal CMP, mildly elevately wbc 10.[address] 06/2022 with kidney stones Mom and dad with polyps in their 30s. Plan Schedule colonoscopy Add daily miralax, continue fiber supplement Rectal bleeding 12/31/2022 Assessment & Plan (01/03/2023 2:29 PM CDT): Intermittent blood in stool few times a week with occasional dark blood, ongoing for a year. Associated with LLQ pain, better after bm, but does not feel like he's emptying all the way. Better with hemorrhoid wipes. Started fiber gummies. Constipated most days with one blow out once a week. Has a lot of stress at work and home No NSAID use Family hx of father and mother with polyps in their 30s No smoking, vapes, no ETOH, uses edible marijuana every couple of weeks Labs from 10/2022 with normal CMP, mildly elevately wbc 10.[address] A/P without 06/2022 with kidney stones and mild hydronephrosis Plan Hemorrhoid bleeding from constipation and straining vs colitis vs polyps Schedule colonoscopy Add daily miralax, continue fiber supplement, sitz bath, preparation wipe/cream, avoid straining. Calculus of kidney 06/14/2022 Overview (06/14/2022): Added automatically from request for surgery [id number] Hydronephrosis with urinary obstruction due to ureteral calculus 06/11/2022 Lumbar radiculopathy Immunizations Immunization Administration Dates Next Due Influenza, Quadrivalent, Spl it, Preservative Free, Intramuscular 03/12/2019 Tdap 03/03/2013 Surgical History Surgery Date Site/Laterality Comments CYSTOSCOPY INSERTION / REMOVAL STENT / STONE HERNIA REPAIR WISDOM TOOTH EXTRACTION Medical History Medical History Date Comments PONV (postoperative nausea and vomiting) Kidney stones Depression PTSD (post-traumatic stress disorder) Generalized-onset seizures (HCC) 01/10/2023 Social History Tobacco Use Types Packs/Day Years Used Date Smoking Tobacco: Former Vaping Smokeless Tobacco: Never Tobacco Cessation:Counseling Given: Not Answered Alcohol Use Standard Drinks/Week Comments Yes 0 (1 standard drink = 0.6 oz pur e alcohol) socially AUDIT-C Answer Date Recorded Q1: How often do you have a drink containing alc ohol? Never 12/31/2022 Average Number of Drinks Not on file 023 Frequency of Binge Drinking Not on file 12/03 PHQ-2 Answer Date Recorded PHQ-2 Total Score (If total score is 3 or more points, staff should administer the PHQ-9) 0 06/11/2022 Personal Safety Answer Date Recorded Have you ever been in or are you currently in a harmful physical or emotional relationship or is someone making you feel afraid or unsafe? Denies 04/15/2024 Sex and Gender Information Value Date Recorded Sex Assigned at Not on file Legal Sex Male 3:47 PM SPA THERAPIST Gender Identity Not on file Sexual Orientation Not on file Obstetrics History Last Filed Vital Signs Vital Sign Reading Time Taken Comments Blood Pressure 144/96 04/16/2024 5:40 AM SPA THERAPIST Pulse 79 04/15/2024 8:19 PM SPA THERAPIST Temperature 37.2 C (99 F) 04/15/2024 8:19 PM SPA THERAPIST Respiratory Rate 24 04/15/2024 8:19 PM SPA THERAPIST Oxygen Saturation 98% 04/15/2024 8:19 PM SPA THERAPIST Inhaled Oxygen Concentration - - Weight 106.1 kg (234 lb) 04/15/2024 8:19 PM SPA THERAPIST Height 175.3 cm (5' 9) 04/15/2024 8:19 PM SPA THERAPIST Body Mass Index 34.56 04/15/2024 8:19 PM SPA THERAPIST Plan of Treatment Health Maintenance Due Date Last Done Comments Hepatitis C Screening 1986 Regular Well Visit/Exam 18-64 2004 Varicella Vaccines (1 of 2 - 13+ 2-dose series) 01/11/2010 DTaP/Tdap/Td Vaccine (4 - Td or Tdap) 03/03/2023 03/03/2013, 01/19/2013, 08/04/2006 Depression Screening 06/12/2023 06/11/2022, 09/06/19 Influenza Vaccine (Season Ended) 2024 03/12/2019, 12/14/2009, 01/04/2009, Additional history exists Hepatitis B Screening Completed 06/02/2007 , 01/02/2007, 12/05/2006 HPV Vaccines Aged Out No longer eligi ble based on patient's age to complete this topic Pneumococcal vaccine <65 Aged Out No longer eligible based on patient's age to complete this topic Medical Devices Explanted Type Area Learning Support Resource Room Teacher Device Identifier Shelf Expiration Date Model / Serial / Lot [employer] Munira Contour 6fr 28cm Taper Tip Bladder Drake Low Profile Large Inner Latex Free 180-224 - [id number] Implanted:Qty: 1 on 06/11/2022 by Freddy Yun MD at [facility] Explanted:Qty: 1 on 06/24/2022 at [facility] Left: [employer]re[employer] Munira 05/13/2024 180-224 / / [id number] Insurance [facility] Advance Directives For more information, please contact: [phone] * Full Code (Latest Code Status on File) Date Activated Date Inactivated Comments 09/06/2019 10:20 PM 09/09/2019 10:26 PM Care Teams Scrap Yard Worker Relationship Specialty Start Date End Date Caroline Arceo NP [address] [place] [address] PCP - General Nurse Practitioner 06/10/22
--- OUTSIDE RECORDS SUMMARY | 2024-08-16 12:19 | XMS_ITS | Clinical Summary ---
Author Organization [facility] Address [address] [place] [address] Phone Care Team Providers Care Industrial Insulator Name Role Phone Unavailable Primary Care Provider Unavailabl e Allergies Active Allergy Reactions Criticality Noted Date Comments Amoxicillin Unknown 01/13/2015 Medications naproxen (NAPROSYN) 500 mg tablet Take 1 Tablet (500 mg) by mouth 2 times daily with meals Po pc bid. 20 Tablet None 01/13/2015 Active cyclobenzaprine (FLEXERIL) 10 mg tablet Take 1 Tablet (10 mg) by mouth 3 times daily as needed for Spasm. 30 Tablet None 01/13/2015 Active meloxicam (MOBIC) 15 mg tablet Take 15 mg by mouth daily. Active Social History Tobacco Use Types Packs/Day Years Used Date Smoking Tobacco: Never Alcohol Use Standard Drinks/Week Comments No 0 (1 standard drink = 0.6 oz pur e alcohol) Sex and Gender Information Value Date Recorded Sex Assigned at Not on file Legal Sex Male 8:50 AM SCREEN AND CYCLONE REPAIRER Gender Identity Not on file Sexual Orientation Not on file Last Filed Vital Signs Vital Sign Reading Time Taken Comments Blood Pressure 130/75 01/13/2015 10:30 AM SCREEN AND CYCLONE REPAIRER Pulse 78 01/13/2015 10:30 AM SCREEN AND CYCLONE REPAIRER Temperature - - Respiratory Rate 9 01/13/2015 9:30 AM SCREEN AND CYCLONE REPAIRER Oxygen Saturation 99% 01/13/2015 10:30 AM SCREEN AND CYCLONE REPAIRER Inhaled Oxygen Concentration - - Weight - - Height - - Body Mass Index - - Plan of Treatment Health Maintenance Due Date Last Done Comments DTAP/TDAP/TD VACCINES (1 - Tdap) 2005 HEPATITIS B VACCINES (1 of 3 - 19+ 3-dose series) 2005 INFLUENZA VACCINE (#1) 2023 HPV VACCINES Aged Out No longer eligi ble based on patient's age to complete this topic
--- OUTSIDE RECORDS SUMMARY | 2024-08-16 12:19 | XMS_ITS | Referral Summary ---
Author Organization [facility] Address [address] [place] [address] Care Team Providers Care Chemistry Associate Name Role Phone Arceo, Caroline Ceja DIGITAL PRINT OPERATOR Primary Care Provider Allergies Active Allergy Reactions [...] (06/14/2022): Added automatically from request for surgery [id number] Hydronephrosis with urinary obstruction due to ureteral calculus 06/11/2022 Lumbar radiculopathy Immunizations Immunization Administration Dates Next Due Influenza, Quadrivalent, Spl it, Preservative Free, Intramuscular 03/12/2019 Tdap 03/03/2013 Social History Tobacco Use Types Packs/Day Years [...] on file Legal Sex Male 3:47 PM MANAGER GRANT Gender Identity Not on file Sexual Orientation Not on file Last Filed Vital Signs Vital Sign Reading Time Taken Comments Blood Pressure 144/96 04/16/2024 5:40 AM MANAGER GRANT Pulse 79 04/15/2024 8:19 PM MANAGER GRANT Temperature 37.2 C (99 F) 04/15/2024 8:19 PM MANAGER GRANT Respiratory Rate 24 04/15/2024 8:19 PM MANAGER GRANT Oxygen Saturation 98% 04/15/2024 8:19 PM MANAGER GRANT Inhaled Oxygen Concentration - - Weight 106.1 kg (234 lb) 04/15/2024 8:19 PM MANAGER GRANT Height 175.3 cm (5' 9) 04/15/2024 8:19 PM MANAGER GRANT Body Mass Index 34.56 04/15/2024 8:19 PM MANAGER GRANT Plan of Treatment Not on file Medical Devices Explanted Type Area Core Cutter Device Identifier Shelf Expiration Date Model / Serial / Lot [employer] Munira Contour 6fr 28cm Taper Tip Bladder Drake Low Profile Large Inner Latex Free 180-224 - [id number] Implanted:Qty: 1 on 06/11/2022 by Freddy Yun MD at [facility] Explanted:Qty: 1 on 06/24/2022 at [facility] Left: [facility] [employer] [facility] 05/13/2024 180-224 / / [id number] Insurance [facility] Member Subscriber Plan / Payer (Ef fective 2024-Present) Name:Ravinder Saucedo Relation to Subscriber:Self Name:Ravinder Saucedo Payer ID:[id number] (NAIC) Group ID:Not on file Type:MEDICAID RISK OTHER Address: [address] [facility] Advance Directives For more information, please contact: [phone] * Full Code (Latest Code Status on File) Date Activated Date Inactivated Comments 09/06/2019 10:20 PM 09/09/2019 10:26 PM Care Teams Chemistry Associate Relationship Specialty Start Date End Date Arceo, Caroline Ceja NP [address] [place] [address] PCP - General Nurse Practitioner 06/10/22
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
--- OUTSIDE RECORDS SUMMARY | 2024-08-16 12:32 | XMS_ITS | Continuity of Care Document ---
Author Name [facility] Organization [facility] Care Team Providers Care [employer] Name Role Phone [facility] Unavailable Unavailable Problems Combined list of problems from Department of Defense and Veterans Affairs facilities. It does not include entries that were removed or entered in error. Problem Status Onset Date Problem Type Date of Resolution Comments Source visit for: refer patient without exam or treatment Inactive Condition DoD PERSONALITY DISORDER Active Condition DoD MAJOR DEPRESSION RECURRENT MODERATE Active Condition [facility] visit for: administrative purpose Inactive Condition DoD ESOPHAGEAL REFLUX Active Condition DoD CONSTIPATION Inactive Condition DoD GASTROENTERITIS Active Condition DoD MIGRAINE HEADACHE Active Condition DoD Cast Inactive Condition DoD REACTIVE AIRWAY DISEASE Active Condition DoD REACTIVE AIRWAY DYSFUNCTION Active Condition DoD ASSESSMENT OF PATIENT CONDITION WORK-RELATED Active Condition DoD noncompliance with therapy Active Condition DoD CHEST PAIN Active Condition DoD 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 DoD ADJUSTMENT DISORDER WITH DEPRESSED MOOD Active Condition 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 DoD CORNEAL SCAR Active Condition DoD REFRACTIVE ERROR - MYOPIA Active Condition DoD ASTIGMATISM - REGULAR Active Condition DoD visit for: routine eye exam Active Condition DoD nausea Inactive Condition 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 DoD ATYPICAL CHEST PAIN Inactive Condition [facility] Preventive Medicine New Patient Evaluation Adult 18-39 Active Condition DoD visit for: services physical Active Condition DoD visit for: screening exam Inactive Condition DoD Need For Vaccination Hepatitis A Inactive Condition DoD Vaccines Prophylactic Need Against Bacterial Diseases Inactive Condition DoD Vaccines Prophylactic Need Against Smallpox Inactive Condition DoD Need For Vaccination Typhoid Inactive Condition DoD OTITIS MEDIA Inactive Condition DoD BACKACHE Inactive Condition muscle rub #1 uad prn pain DoD SUPERFICIAL INJURY - BLISTER OF THE FOOT Inactive Condition DoD COMMON COLD Inactive Condition symptoms may be due to underlying allergy symptoms. Discussed with ANETA, agrees, he comes [place] and notes that the seasons are much different DoD visit for: ears / hearing exam Active Condition DoD Patient Education Active Condition DoD visit for: screening exam pulmonary tuberculosis Inactive Condition DoD Tuberculin PPD Induration Positive Interpretation Active Condition [facility] visit for: services physical accession Inactive Condition DoD Diagnosis: ICD-10-CM F33.1 Major depressive disorder, recurrent, moderate Active Diagnosis [facility] Diagnosis: ICD-10-CM Z59.2 Discord with neighbors, lodgers and landlord Active Diagnosis [facility] Diagnosis: ICD-10-CM F43.10 Post-traumatic stress disorder, unspecified Active Diagnosis [facility] Diagnosis: ICD-10-CM R45.851 Suicidal ideations Active Diagnosis [facility] Medications Combined list of outpatient medications from Department of [facility] and Veterans Affairs facilities.Medications provided include 1) outpatient medications from the last 15 months, and 2) patient-reported medications. Medication Details Route Status Patient Instructions Prescription Expires Prescription Number Last Dispense Date Ordering Provider Order Date Order Qty Source CITALOPRAM HYDROBROMID E 20MG TAB TAKE ONE-HALF TABLET BY MOUTH EVERY MORNING FOR 14 DAYS, THEN TAKE ONE TABLET EVERY MORNING FOR DEPRESSI ON ORAL ACTIVE 04/24/2025 [id number] 5 MCKNIGHTMRAI 2024 30 [facility] Allergies, Adverse Reactions, Alerts Combined list of allergies from Department of Defense and Veterans Affairs facilities. It does not include entries that were removed or entered in error. Substance Category Reaction Severity Reaction type Status Date Reported Comments Source AMOXICILLIN Propensity to adverse reactions to drug (finding) Respiratory distress active 5 [facility] AUGMENTIN Drug allergy (disorder) Unknown active 9 [facility] AUGMENTIN Propensity to adverse reactions to drug (finding) Swelling active 5 [facility] Immunizations Combined list of available immunizations from the Department of Defense and [facility] facilities. Immunization Series Date Given Administered By Site Reaction Lot Number CVX Code Drug Waste Salvager Status Comments Source influenza virus vaccine, live, attenuated, for intranasal use 1 2009 [id number] Unknown (UNK) comple t ed influenza virus vaccine, live, attenuate d, for intranasa l use [facility] Novel influenza-H1N 1-09, injectable 1 2009 UNK 127 [employer]. (NOV) complet ed Novel influenza -[id number], injectabl e [facility] influenza virus vaccine, live, attenuated, for intranasal use 1 2008 [id number] 111 [employer]. (MED) complet ed influenza virus vaccine, live, attenuate d, for intranasa l use DoD typhoid Vi capsular polysaccharid e vaccine 1 2008 UNK 101 Unknown (UNK) comple t ed typhoid Vi capsular polysacch aride vaccine DoD anthrax vaccine 5 2007 UNK 24 Miles (MIL) complet ed anthrax vaccine DoD influenza virus vaccine, live, attenuated, for intranasal use 1 2007 [id number] 111 [facility] (SKB) complet ed influenza virus vaccine, live, attenuate d, for intranasa l use DoD hepatitis B vaccine, adult dosage 3 2007 [id number] 43 Unknown (UNK) comple t ed hepatitis B vaccine, adult dosage DoD anthrax vaccine 4 2007 UNK 24 [facility] ([facility]) complet ed anthrax vaccine DoD hepatitis A vaccine, adult dosage 2 2007 UNK 52 Unknown (UNK) comple t ed hepatitis A vaccine, adult dosage DoD hepatitis B vaccine, adult dosage 2 2006 UNK 43 Unknown (UNK) comple t ed hepatitis B vaccine, adult dosage DoD anthrax vaccine 3 2006 UNK 24 Unknown (UNK) comple t ed anthrax vaccine DoD anthrax vaccine 2 2006 UNK 24 Unknown (UNK) comple t ed anthrax vaccine DoD hepatitis B vaccine, adult dosage 1 2006 UNK 43 Unknown (UNK) comple t ed hepatitis B vaccine, adult dosage DoD influenza virus vaccine, live, attenuated, for intranasal use 1 2006 UNK 111 Unknown (UNK) comple t ed influenza virus vaccine, live, attenuate d, for intranasa l use DoD anthrax vaccine 1 2006 GITA TIERNEY [id number] [facility] ([facility]) complet ed anthrax vaccine DoD hepatitis A vaccine, adult dosage 1 2006 GITA TIERNEY [id number] [facility] (SKB) complet ed hepatitis A vaccine, adult dosage DoD vaccinia (smallpox) vaccine 1 2006 GITA TIERNEY [id number] [facility] complet ed vaccinia (smallpox ) vaccine DoD typhoid Vi capsular polysaccharid e vaccine 1 2006 GITA TIERNEY [id number] Sanofi Pasteur (PMC) complet ed typhoid Vi capsular polysacch aride vaccine DoD measles, mumps and rubella virus vaccine 1 2006 UNK 03 Unknown (UNK) comple t ed measles, mumps and rubella virus vaccine DoD poliovirus vaccine, inactivated 1 2006 [id number] Sanofi Pasteur (PMC) complet ed polioviru s vaccine, inactivat ed DoD meningococcal polysaccharid e (groups A, C, Y and W-135) diphtheria toxoid conjugate vaccine (MCV4P) 1 2006 [id number] 114 Sanofi Pasteur (PMC) complet ed meningoco ccal polysacch aride (groups A, C, Y and W-135) diphtheri a toxoid conjugate vaccine (MCV4P) DoD tetanus toxoid, reduced diphtheria toxoid, and acellular pertu is vaccine, adsorbed 1 2006 [id number] 115 Sanofi Pasteur (PMC) complet ed tetanus toxoid, reduced diphtheri a toxoid, and acellular pertussis vaccine, adsorbed DoD Encounters Combined list of: 1) Encounters from Department of Veterans Affairs facilities going backup to the last 18 months, not all VA inpatient encounters are included; 2) Encounters from the Department of Defense facilities going backup to 280 months. Location Location Details Encounter Type Encounter Number Reason For Visit Attending Provider ADM Date DC Date Status Disposition Source [place] [facility] [place] OUTPATIENT [id number] CARISSA MRAIN 08/05 Released w/o Limitations [place] [id number] POS PPD CARLITA CHEN 08/06 Released with Work/Duty Limitations [place] [id number] hearing test NORMA LINDSEY 08/06 Released w/o Limitations [place] [place] [id number] TB [facility] ABDOUL ORTA 08/07 Released [place] Lim[place] OUTPATIENT [id number] CHARLEE MONTAGUE 08/23 Released w/o Limitations [place]) OUTPATIENT [id number] cold. RAPHAEL GARCIA V 09/16 Released w/o Limitations [place]) [place]) OUTPATIENT [id number] heel pain. ANATOLY KEON E. 10/01 Released with Work/Duty Limitations [place]) [place]) OUTPATIENT [id number] back pain. BRII DE LA ROSA 10/23 Released w/o Limitations [place]) [place]) OUTPATIENT [id number] ear pain. YANNICK ACOSTA 11/07 Released w/o Limitations [place] [place] OUTPATIENT [id number] PREDEPL OYMENT [employer]ER 'S READINE SS CHECK MARJAN ROSARIO 11/07 Released w/o Limitations [place]Read [place]ess Process [place]) [place]) OUTPATIENT [id number] A POR DAYNA ALCANTAR 11/10 Released w/o Limitations [place]) [facility](Hear ing Conservat ion [facility]) OUTPATIENT [id number] in-proc essing/ pcs NORMA AHUJA 01/04 Released w/o Limitations [facility](He aring Conserv ation [facility]) [facility]) OUTPATIENT [id number] MARTI Valadez 01/12 Released w/o Limitations [facility] [place]([facility]) [facility] [place]) OUTPATIENT [id number] f/u dehydra deliciaon NITISH JOHNS 07/08 Released w/o Limitations [facility] [place]([facility]) [facility] [place](Card iology) OUTPATIENT [id number] Walk-in Stress Test NORA PATTON Maren 07/20 Released w/o Limitations [facility] [place](Ca rdiolog y) [facility] [place]([facility]) OUTPATIENT [id number] episodi c chest pain IMELDAGORDON KRISTIN JUAN DANIEL 09/09 Released w/o Limitations [facility] [place]([facility]) [facility] [place](Opto metry [facility]) OUTPATIENT [id number] red right eye pt wears cl ANDREW CAMACHO N 09/19 Released w/o Limitations [facility] [place](Op tometry CT) [facility] [place](Opto metry [facility]) OUTPATIENT [id number] se1 od ANDREW CAMACHO N 09/21 Released w/o Limitations [facility] [place](Op tometry CT) [facility] [place](Opto metry [facility]) OUTPATIENT [id number] annual exam RONY THOMSON 12/29 Released w/o Limitations [facility] [place](Op tometry CT) [facility] [place](Carisa gency Room) OUTPATIENT [id number] ZURDO NIEVES 01/05 Released w/o Limitations [facility] [place](Em ergency Room) [facility] [place] ER, [facility] TO [facility] [id number] TING CASTANON 02/13 RETURNED TO DUTY [facility] [place] [facility] [place](Carisa gency Room) OUTPATIENT [id number] PETRA SANCHEZ 02/15 Admitted [facility](Em ergency Room) [facility] [place](Hakeem ology/Hea ring Conservat ion) OUTPATIENT [id number] QUITA Rg 04/12 Released w/o Limitations [facility] [place](Au diology /Hearin g Conserv ation) [facility] [id number] asthma sx GEMINI BLOOM 07/18 Released with Work/Duty Limitations [facility] [place] OUTPATIENT [id number] Chest and breathi ng problem s (Ref by 07/01 AD) GEMINI BLOOM 08/01 Released w/o Limitations [facility] [place] [place](Carisa gency Room) OUTPATIENT [id number] PETRA SANCHEZ 09/06 Released w/o Limitations [facility] [place](Em ergency Room) [facility] [place](Carisa gency Room) OUTPATIENT [id number] ZURDO NIEVES 09/13 Sick at Home/Quarter s [facility] [place](Em ergency Room) [facility] [place](Brac e Shop) OUTPATIENT [id number] [facility] GIANCARLO Maynadr 09/14 Released w/o Limitations [facility] [place](Br ramo Shop) [facility] [place] OUTPATIENT [id number] FAULKNER x2 1/2 wks ARMEN CHANDLER 10/26 Sick at Home/Quarter s [facility] [place] [place](Immi gration Phys Exam) OUTPATIENT [id number] migrain es ARMEN CHANDLER 10/27 Released w/o Limitations [facility] [place](Im migrati on Phys Exam) [facility] [place] [id number] follow up ARMEN CHANDLER 10/27 Released w/o Limitations [facility] [place] [place]IENT [id number] abdomin al pain KRISTIN MCADAMS 12/01 Released w/o Limitations [facility] [place] [place] OUT[facility]IENT [id number] black stools, stomach cramps x1 week ARMEN CHANDLER 12/06 Released w/o Limitations [facility] [place]([facility]) [facility] [place]([facility]) OUTPATIENT [id number] f/u for GI consult KRISTIN MCADAMS 01/08 Released w/o Limitations [facility] [place]([facility]) [facility] [place](Carisa gency Room) OUTPATIENT [id number] LUIS DANIEL MOORE 04/10 Released w/o Limitations [facility] [place](Em ergency Room) [facility] [place](Carisa gency Room) OUTPATIENT [id number] LUIS DANIEL MOORE 04/12 Released w/o Limitations [facility] [place](Em ergency Room) [facility] [place] AD [facility] [id number] MAYRA FERRIS V 04/13 CANCELLED ADMISSION [facility] [place] [facility] [place](Carisa gency Room) OUTPATIENT [id number] JAYCE CASAREZ 04/13 Immediate Referral [facility](Em ergency Room) [facility] [place](Opto metry [facility]) OUTPATIENT [id number] ZAHEER Aldana 05/08 Released w/o Limitations [facility] [place](Op tometry [facility]) [facility] [place](Hakeem ology/Hea ring Program) OUTPATIENT [id number] QUITA Robledo 05/08 Released w/o Limitations [facility] [place](Au diology /Hearin g Program ) [facility] [place] Bde [facility]) OUTPATIENT [id number] phase II PE (Chapte r) KRISTIN MCADAMS 05/10 Released w/o Limitations [facility] [place](Me ndoza [facility] Bde 2) [facility] ER, DIRECT TO [facility] [id number] 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 07/19 RETURNED TO DUTY [facility] [place] [facility] [place](Carisa gency Room) OUTPATIENT [id number] JAYCE CASAREZ 07/20 Admitted [facility] [place](Em ergency Room) [facility] [place](Carisa gency Room) OUTPATIENT [id number] JAYCE CASAREZ 08/02 Immediate Referral [facility] [place](Em ergency Room) [facility] CRISIS INTERVEN WAIVER/ M [id number] Diagnos is: ICD-10- CM R45.851 Suicida l ideatio ns BEVERLY COMER 12/04 [facility] Outpatient Encounter [id number] BEVERLY COMER 12/07 [facility] PSYTX W PT 60 MINUTES [id number] Diagnos is: ICD-10- CM F43.10 Post-tr aumatic stress disorde r, unspeci fied BEVERLY COMER 12/07 [facility] Outpatient Encounter [id number] Otilio BLACK 12/07 [facility] Outpatient Encounter [id number] 12/07 [facility] Outpatient Encounter [id number] 12/08 [facility] Outpatient Encounter [id number] 12[facility]11 [facility] [id number] BEVERLY COMER 12/16 [facility] Outpatient Encounter [id number] BEVERLY COMERN A 12/17 [facility] Outpatient Encounter [id number] BEVERLY COMERN A 12/18 [facility] Outpatient Encounter [id number] BEVERLY COMERN A 12/23 [facility] Outpatient Encounter [id number] BEVERLY COMERN A 12/24 [facility] Outpatient Encounter [id number] BEVERLY COMERN A 12/25 [facility] Outpatient Encounter [id number] BEVERLY COMERN A 01/01 [facility] Outpatient Encounter [id number] BEVERLY COMERN A 01/04 [facility] Outpatient Encounter [id number] BEVERLY COMERYNN A 01/05 [facility] Outpatient Encounter [id number] BEVERLY COMERYNN A 01/19 [facility] Outpatient Encounter [id number] BEVERLY COMERN A 01/26 [facility] Outpatient Encounter [id number] BEVERLY COMER A 02/02 [facility] Outpatient Encounter [id number] BEVERLY COMER A 02/09 [facility] Outpatient Encounter [id number] BEVERLY COMER A 02/16 [facility] Outpatient Encounter [id number] BEVERLY COMER A 03/01 [facility] Outpatient Encounter [id number] 03/01 [facility] Outpatient Encounter [id number] BEVERLY COMER A 03/11 [facility] N [facility] PH1 ASSMT&MGMT NQHP 5-10 [id number] Diagnos is: ICD-10- CM Z59.2 Discord with lu anton and ANTHONY Becerril 04/05 [facility] En[facility] [id number] Bell MCKNIGHT 04/07 [facility] En[facility] [id number] Margarita BENDER 04/13 [facility] Outpatient Encounter [id number] 04/13 [facility] Outpatient Encounter [id number] MICKEY GILLETTE 04/15 [facility] SYNCH AUDIO-VIDE O NEW MOD 45 [id number] Diagnos is: ICD-10- CM F33.1 Major depress amna disorde r, recurre nt, moderat e JUAN LUIS,P PASHA 04/23 [facility] Outpatient Encounter [id number] 04/23 [facility] Outpatient Encounter [id number] RAIZA MONTELONGO 05/28 [facility] Outpatient Encounter [id number] LIBRADO IBRAHIM 06/01 [facility] Outpatient Encounter [id number] 06/02 [facility] Procedures Combined list of: 1) Procedures from Department of [facility] Affairs facilities going back up to thelast 18 months, not all VA non-surgical procedures are included; 2) All procedures from the Department of Defense facilities. Procedure Procedure Type Code Date Perfomer Comments Jeremías e Social Work Individual Outpatient Counseling 45-50 Minutes Social Work Individual Outpatient Counseling 45-50 Minutes [id number] 08/14/19 11 MONSERRAT BRAVO Social Work Individual Outpatient Counseling 45-50 Minutes Social Work Individual Outpatient Counseling 45-50 Minutes 34410 06/09/19 11 MONSERRAT BRAVO Audiometry Group Testing Audiometry Group Testing 45814 05/11/19 11 QUITA BHAKTA [facility] Screening Test Of Visual Acuity, Quantitative, Bilateral Screening Test Of Visual Acuity, Quantitative, Bilateral 11518 05/09/19 11 ZAHEER JENNINGS [facility] Psychiatric Therapy Preparation of Psychiatric Status Report Psychiatric Therapy Preparation of Psychiatric Status Report [id number] 05/03/19 11 ED REYNOLDS [facility] Psychiatric Evaluation Review of Records and Reports Psychiatric Evaluation Review of Records and Reports [id number] 05/03/19 11 ED REYNOLDS [facility] Psychiatric Evaluation Comprehensive Examination Psychiatric Evaluation Comprehensive Examination 58293 04/26/[address] Supervised Injection Intramuscular Supervised Injection Intramuscular 70584 10/27/19 10 ARMEN CHANDLER ketorolac 60 mg im now, phenergan 25 mg im now DoD Orthopedic Casting Gauntlet Orthopedic Casting Gauntlet 32706 09/17/19 10 GIANCARLO MENDOZA [facility] Pulmonary Function Tests Peak Expiratory Flow Pulmonary Function Tests Peak Expiratory Flow 87131 07/19/19 10 GEMINI BLOOM [facility] Audiometry Group Testing Audiometry Group Testing 01823 04/14/19 10 QUITA BHAKTA [facility] Social Work Individual Outpatient Counseling 20-30 Minutes Social Work Individual Outpatient Counseling 20-30 Minutes 63235 03/07/19 10 LUCRECIA SANTIAGO [facility] Psychiatric Evaluation Comprehensive Examination Psychiatric Evaluation Comprehensive Examination 71385 03/06/19 10 ANDRE GAMBOA [facility] Fundoscopic Exam Extensive Initial Exam Fundoscopic Exam Extensive Initial Exam [id number] 12/30/19 09 RONY THOMSON Determination Of Refractive State Determination Of Refractive State 91497 12/30/19 09 RONY THOMSON [facility] [facility] Fitting Monofocals (Not For Aphakia) [facility] Fitting Monofocals (Not For Aphakia) 25236 12/30/19 09 RONY THOMSON Ophthalmological Prior Patient Start Comprehensive Care Ophthalmological Prior Patient Start Comprehensive Care 68829 12/30/19 09 RONY THOMSON Ophthalmological Prior Patient Start Intermediate Level Care Ophthalmological Prior Patient Start Intermediate Level Care 23370 09/22/19 09 ANDREW CAMACHO Slit Lamp Examination With Photography Slit Lamp Examination With Photography 84473 09/20/19 09 ANDREW CAMACHO Ophthalmological New Patient Start Intermediate Level Care Ophthalmological New Patient Start Intermediate Level Care 81233 09/20/19 09 ANDREW CAMACHO [facility] Audiometry Group Testing Audiometry Group Testing 37877 01/06/20 08 NORMA AHUJA [facility] Preventive Medicine Physical Exam Vital Signs Recorded Preventive Medicine Physical Exam Vital Signs Recorded 11/11/19 07 KATHARINEDAYNA LOZANO [facility] Hepatitis A Vaccine Adult Dosage (Intramuscular Use) Hepatitis A Vaccine Adult Dosage (Intramuscular Use) 87253 11/08/19 07 MARJAN ROSARIO [facility] Typhoid Vaccine Vi Capsular Polysaccharide, For Intramus Use Typhoid Vaccine Vi Capsular Polysaccharide, For Intramus Use 04739 11/08/19 07 MARJAN ROSARIO Anthrax Vaccine, For Subcutaneous Use 11/08/19 07 MARJAN ROSARIO [facility] Immunization Administration Each Additional Vaccine 11/08/19 07 MARJAN ROSARIO [facility] Immunization Administration One Vaccine Immunization Administration One Vaccine 18082 11/08/19 07 MARJAN ROSARIO Vaccines Vaccines 79151 11/08/19 07 MARJAN ROSARIO [facility] Venipuncture Venipuncture 89784 11/08/[address]Supervised Services Provision Of Special Supplies -Supervised Services Pro[employer] Of Special Supplies [id number] 08/08/[address] Educational Services 08/08/19 07 NORMA LINDSEY Threshold Audiogram (Pure Tone) Threshold Audiogram (Pure Tone) [id number] 08/08/19 07 NORAM LINDSEY Audiometry Group Testing Audiometry Group Testing [id number] 08/08/[address] Services Analysis Of Computerized Data Special Rdz Services Analysis Of Computerized Data [id number] 08/08/19 07 NORMA LINDSEY Ear Protector Attenuation Measurements Ear Protector Attenuation Measurements [id number] 08/08/19 07 NORMA LINDSEY Spectacles Services Fitting Monofocals (Not For Aphakia) [employer]acles Services Fitting Monofocals (Not For Aphakia) [id number] 08/06/19 07 TOMAS, CARISSA [facility] Visual Function Screening Visual Function Screening [id number] 08/06/19 07 TOMAS CARISSA [facility] VITAL SIGNS (TEMPERATURE, PULSE, RESPIRATORY RATE, AND BLOOD PRESSURE) DOCUMENTED AND REVIEWED (CAP) (EM) 11/11/19 07 [facility] TYPHOID VACCINE, CAPSULAR POLYSACCHARIDE (VICPS), FOR INTRAMUSCULAR USE 11/08/19 07 [facility] PURE TONE AUDIOMETRY (THRESHOLD); AIR ONLY 08/07/19 07 [facility] FITTING OF SPECTACLES, EXCEPT FOR APHAKIA; MONOFOCAL 08/06/19 07 [facility] INDIVIDUAL PSYCHOTHERAPY, INSIGHT ORIENTED, BEHAVIOR MODIFYING AND/OR SUPPORTIVE, IN AN OFFICE OR OUTPATIENT FACILITY, APPROXIMATELY 45 TO 50 MINUTES [id number] WITH THE PATIENT 08/14/19 11 [facility] COLLECTION OF VENOUS BLOOD BY VENIPUNCTURE 08/02/19 11 [facility] OCCUPATIONAL THERAPY EVALUATION 07/21/19 11 [facility] COLLECTION OF VENOUS BLOOD BY VENIPUNCTURE 07/20/19 11 [facility] INDIVIDUAL PSYCHOTHERAPY, INSIGHT ORIENTED, BEHAVIOR MODIFYING AND/OR SUPPORTIVE, IN AN OFFICE OR OUTPATIENT FACILITY, APPROXIMATELY 45 TO 50 MINUTES [id number] WITH THE PATIENT 06/09/19 11 [facility] AUDIOMETRIC TESTING OF GROUPS 05/09/19 11 [facility] SCREENING TEST OF VISUAL ACUITY, QUANTITATIVE, BILATERAL 05/09/19 11 [facility] PREPARATION OF REPORT OF PATIENT'S PSYCHIATRIC STATUS, HISTORY, TREATMENT, OR PROGRESS (OTHER THAN FOR LEGAL OR CONSULTATIVE PURPOSES) FOR OTHER INDIVIDUALS, AGENCIES, OR INSURANCE CARRIERS 05/03/19 11 [facility] PSYCHIATRIC DIAGNOSTIC INTERVIEW EXAMINATION 04/26/19 11 [facility] ELECTROCARDIOGRAM, ROUTINE ECG WITH AT LEAST 12 LEADS; WITH INTERPRETATION AND REPORT 04/12/19 11 [facility] INJECTION, KETOROLAC TROMETHAMINE, PER 15 MG 09/13/19 10 [facility] COLLECTION OF VENOUS BLOOD BY VENIPUNCTURE 09/06/19 10 [facility] AUDIOMETRIC TESTING OF GROUPS 04/12/19 10 [facility] INDIVIDUAL PSYCHOTHERAPY, INSIGHT ORIENTED, BEHAVIOR MODIFYING AND/OR SUPPORTIVE, IN AN OFFICE OR OUTPATIENT FACILITY, APPROXIMATELY 20 TO 30 MINUTES [id number] WITH THE PATIENT 03/07/19 10 [facility] PSYCHIATRIC DIAGNOSTIC INTERVIEW EXAMINATION 03/06/19 10 [facility] MEDICAL NUTRITION THERAPY; GROUP (2 OR MORE INDIVIDUAL(S)), EACH 30 MINUTES 02/17/20 [facility] MEDICAL NUTRITION THERAPY; GROUP (2 OR MORE INDIVIDUAL(S)), EACH 30 MINUTES 02/15/20 [facility] ELECTROCARDIOGRAM, ROUTINE ECG WITH AT LEAST 12 LEADS; WITH INTERPRETATION AND REPORT 01/05/20 [facility] OPHTHALMOSCOPY, EXTENDED, WITH RETINAL DRAWING (EG, FOR RETINAL DETACHMENT, MELANOMA), WITH INTERPRETATION AND REPORT; INITIAL 12/30/19 [facility] NONINVASIVE EAR OR PULSE OXIMETRY FOR OXYGEN SATURATION; MULTIPLE DETERMINATIONS (EG, DURING EXERCISE) 10/12/19 [facility] OPHTHALMOLOGICAL SERVICES: MEDICAL EXAMINATION AND EVALUATION, WITH INITIATION OR CONTINUATION OF DIAGNOSTIC AND TREATMENT PROGRAM; INTERMEDIATE, ESTABLISHED PATIENT 09/22/19 [facility] EXTERNAL OCULAR PHOTOGRAPHY WITH INTERPRETATION AND REPORT FOR DOCUMENTATION OF MEDICAL PROGRESS (EG, CLOSE-UP PHOTOGRAPHY, SLIT LAMP PHOTOGRAPHY, GONIOPHOTOGRAPHY, STEREO-PHOTOGRAPHY) 09/20/19 [facility] COLLECTION OF VENOUS BLOOD BY VENIPUNCTURE 07/21/19 [facility] INFUSION, NORMAL SALINE SOLUTION , 1000 CC 07/08/19 [facility] AUDIOMETRIC TESTING OF GROUPS 01/04/20 [facility] ANTHRAX VACCINE, FOR SUBCUTANEOUS OR INTRAMUSCULAR USE 01/04/20 08 [facility] Social History Combined list of available smoking, tobacco, and other social history from [facility] and [facility] facilities. Social History Type Response Date Comment Sour e This section is an empty social history section. [facility]
--- OUTSIDE RECORDS SUMMARY | 2024-08-16 12:33 | XMS_ITS | Encounter Summary ---
Author Name [facility] [place] [facility] Address [address] [place] [id number] Support Name Relationship Address Phone TONY AARON Next of Kin [address] [place] [address] AARON JIMENEZ Emergency Contact [address] [place] [address] Selected Encounter This section includes the information on record at [place] for the Encounter. Date/Time Encounter Type Encounter Description Reason Pro vider Source IHE Encounter Template Text not used by [place]
== END 2024-08-16 12:27 | disposition home or self-care (01) ==
PROVIDERS: Emergency Provider Nurse Practitioner Family; PCP Nurse Practitioner Family
DX: S62.364A Nondisplaced fracture of neck of fourth metacarpal bone, right hand, initial encounter for closed fracture (principal); S62.366A Nondisplaced fracture of neck of fifth metacarpal bone, right hand, initial encounter for closed fracture; W22.8XXA Striking against or struck by other objects, initial encounter
CPT/HCPCS: 29125; 73130; 99214; A4565; G0463